=== PATIENT | female | born 1970 | race Caucasian/White ===

== ENCOUNTER 2019-10-18 16:22 | Emergency (ER) | payer MEDICAID, OTHER ==
[2019-10-18 16:39] VITALS: BP 147/92
--- NOTE | 2019-10-18 16:41 | UC ---
FLU HPI - HPI Summary HPI Summary: 2wks of body aches, chills, headache, sore throat, sinus pressure, weakness/ fatigue, dizziness, vomiting, and congestion. reports r facial pressure. Pt states that symptoms started yesterday. has sick contacts at home. was rx'd amox a few wks ago for her sinuses but did not finish b/c the amox gave her abd cramps and soft stools. - History of Current Complaint Chief Complaint: UCGeneralIllness Stated Complaint: COUGH, HEADACHE, CONGESTION Time Seen by Provider: 10/18/19 16:39 Hx Obtained From: Patient Hx Last Menstrual Period: 10/13/19 Pain Intensity: 10 Pain Scale Used: 0-10 Numeric - Allergy/Home Medications Allergies/Adverse Reactions: Allergies Allergy/AdvReac Type Severity Reaction Status Date / Time No Known Allergies Allergy Verified 10/18/19 17:18 Home Medications: Home Medications Amoxicillin/Clavulanate TAB* [Augmentin TAB 500 mg*] 500 mg PO BID 7 Days #14 tab 10/18/19 [Rx] Amphetamine MIXED SALT TAB* [Adderall TAB*] 20 mg PO BID 10/18/19 [History Confirmed 10/18/19] Topiramate TAB(*) [Topamax 100 mg tab] 100 mg PO DAILY 10/18/19 [History Confirmed 10/18/19] cloNIDine TAB* [Catapres 0.1 MG TAB*] 0.1 mg PO DAILY 10/18/19 [History Confirmed 10/18/19] PMH/Surg Hx/FS Hx/Imm Hx Previously Healthy: Yes Psychological History: Anxiety - Surgical History Surgical History: None Surgery Procedure, Year, and Place: 2 c-sections - Family History Known Family History: Positive: Non-Contributory - Social History Alcohol Use: Occasionally Substance Use Type: None Smoking Status (MU): Heavy Every Day Tobacco Smoker Type: Cigarettes Amount Used/How Often: <1/2 PPD Length of Time of Smoking/Using Tobacco: Off and On for 10 Years Have You Smoked in the Last Year: No Review of Systems Constitutional: Positive: Fever, Chills, Fatigue ENT: Positive: Dental Pain, Sore Throat, Ear Ache, Nasal Discharge, Sinus Congestion, Sinus Pain/Tenderness Respiratory: Positive: Cough. Negative: Shortness Of Breath Cardiovascular: Negative: Chest Pain Gastrointestinal: Negative: Vomiting, Diarrhea, Nausea Neurological/Mental Status: Positive: Headache. Negative: Weakness, Paresthesia , Numbness Physical Exam Triage Information Reviewed: Yes Appearance: Well-Appearing Vital Signs: Initial Vital Signs Temp 98.9 F 10/18/19 16:31 Pulse 80 10/18/19 16:31 Resp 18 10/18/19 16:31 BP 147/92 10/18/19 16:31 Pulse Ox 100 10/18/19 16:31 Vital Signs Reviewed: Yes Eyes: Positive: Conjunctiva Clear ENT: Positive: Pharynx normal, TMs normal, Uvula midline Neck: Positive: Supple, Nontender, No Lymphadenopathy Respiratory Exam: Normal Cardiovascular Exam: Normal Neurological: Positive: Alert Skin: Negative: Rashes Flu Course/Dx - Course Course Of Treatment: A myrid of symptoms rapid strep neg, rapid flu neg. of note she was amox 3 wks ago but did not finish. amox gives her nausea and belly aches - Differential Dx/Diagnosis Differential Diagnosis/HQI/PQRI: Influenza, RSV, Other Provider Diagnosis: Sinusitis Discharge ED - Discharge Plan Condition: Good Disposition: HOME Prescriptions: Amoxicillin/Clavulanate TAB* [Augmentin TAB 500 mg*] 500 mg PO BID 7 Days #14 tab Patient Education Materials: Sinusitis (ED) Referrals: Samina Hill DO [Primary Care Provider] - Additional Instructions: I do not think you have a bacterial infection but am willing to prescribe antibiotics. Please know that antibiotics all have side effects and risk, please read the information on the bottles. If no improvement it may be likely that this was viral the whole time. - Billing Disposition and Condition Condition: GOOD Disposition: Home
[2019-10-18 17:06] LABS: Influenza A Molecular Negative (Negative); Influenza B Molecular Negative (Negative)
== END 2019-10-18 17:33 | disposition home or self-care (01) ==
LOC: UCCORT 16:22
DX: J32.9 Chronic sinusitis, unspecified (principal); J02.9 Acute pharyngitis, unspecified; K08.89 Other specified disorders of teeth and supporting structures; F17.210 Nicotine dependence, cigarettes, uncomplicated
CPT/HCPCS: 87651; 99201; G0463